=== PATIENT | male | born 1985 | race African-American/Black ===

== ENCOUNTER 2017-07-31 04:24 | Emergency (ER) | payer OTHER ==
[~2017-07-31] VITALS: Ht 180.3 cm; Wt 94.1 kg
[~2017-07-31 04:24] MED LIST: LEVAQUIN500 MG PO; PROMETHAZINE HC25 M1 PO; PROVENTIL HFA6.7 GM IH; ROBITUSSIN DM118 ML PO; ZITHROMAX Z-PA250 MG PO
[2017-07-31 06:40] LABS: HEMATOCRIT 44.4 % (38.0-50.0); HEMOGLOBIN 15.5 G/DL (12.5-16.6); MCH 30.9 PG (29.0-34.0); MCHC 34.9 G/DL (30.0-36.0); MCV 88.4 FL (86-99); PLATELET COUNT 210 K/uL (156-360); RBC DIS.WIDTH-CV 12.6 % (11.8-14.6); RBC DIS.WIDTH-SD 40.9 % (39-53); RED BLOOD COUNT 5.02 M/uL (4.00-5.50); WHITE BLOOD COUNT 4.3 K/uL (4.1-10.2)
[2017-07-31 07:06] LABS: CHLORIDE 106 MEQ/L (99-109); CREATININE 1.1 MG/DL (0.6-1.3); GFR ESTIMATE (CALCULATED) > 59 mL/min/ (58.99-99999); GLUCOSE 91 mg/dL (70-99); POTASSIUM 4.1 MEQ/L (3.7-5.4); SODIUM 141 MEQ/L (136-147); UREA NITROGEN (BUN) 15 mg/dL (9-23)
[2017-07-31] MEDS ORDERED: NORCO 5/3251 TABLET PO (09:28)
[2017-07-31] MEDS ORDERED: CEFDINIR300 MG PO (09:28)
[2017-07-31 10:44] VITALS: BP 142/96
[2017-08-01] MEDS ORDERED: NORCO 5/3251 TABLET PO (17:45)
== END 2017-07-31 10:35 | disposition home or self-care (01) ==
LOC: EME 04:24
PROVIDERS: Emergency Medicine
DX: K11.20 Sialoadenitis, unspecified (principal); F17.200 Nicotine dependence, unspecified, uncomplicated
CPT/HCPCS: 70491; 80048; 85027; 99281; 99284; J0696; J3010

== ENCOUNTER 2017-08-01 15:09 | Emergency (ER) | payer OTHER ==
[~2017-08-01] VITALS: Ht 154.9 cm; Wt 96.3 kg
[~2017-08-01 15:09] MED LIST changes: +CEFDINIR300 MG PO; +NORCO 5/3251 TABLET PO
[2017-08-01 16:07] LABS: HEMATOCRIT 43.1 % (38.0-50.0); HEMOGLOBIN 14.9 G/DL (12.5-16.6); MCH 30.7 PG (29.0-34.0); MCHC 34.6 G/DL (30.0-36.0); MCV 88.7 FL (86-99); PLATELET COUNT 197 K/uL (156-360); RBC DIS.WIDTH-CV 12.5 % (11.8-14.6); RED BLOOD COUNT 4.86 M/uL (4.00-5.50); WHITE BLOOD COUNT 3.5 K/uL (4.1-10.2)
[2017-08-01 16:15] LABS: CHLORIDE 106 mEq/L (99-109); POTASSIUM 3.9 mEq/L (3.7-5.4); SODIUM 141 mEq/L (136-147)
[2017-08-01 16:17] LABS: GLUCOSE 100 mg/dL (70-99)
[2017-08-01 16:21] LABS: CREATININE 1.1 mg/dL (0.6-1.3); GFR ESTIMATE (CALCULATED) > 59 mL/min/ (58.99-99999)
[2017-08-01 16:22] LABS: UREA NITROGEN (BUN) 10 mg/dL (9-23)
[2017-08-01] MEDS ORDERED: NORCO 5/3251 TABLET PO (17:45)
[2017-08-01 17:50] VITALS: BP 125/86
== END 2017-08-01 17:50 | disposition home or self-care (01) ==
LOC: EME 15:09
PROVIDERS: Physician Assistant
DX: K11.20 Sialoadenitis, unspecified (principal); F17.200 Nicotine dependence, unspecified, uncomplicated; Z87.09 Personal history of other diseases of the respiratory system; Z98.52 Vasectomy status
CPT/HCPCS: 80048; 83605; 85027; 86735 90; 87040; 99281; 99285; J1100; J1885